=== PATIENT | female | born 1945 | race Caucasian/White ===

== ENCOUNTER → 2016-07-18 | Outpatient (CLI) | payer MEDICARE, OTHER | LOC: RAD 07:50 | PROVIDERS: ATTEND Family Medicine | DX: Z12.31 Encounter for screening mammogram for malignant neoplasm of breast (principal) ==

== ENCOUNTER → 2016-08-04 | Outpatient (CLI) | payer MEDICARE, OTHER ==
--- NOTE | 2016-08-04 13:52 | Diagnostic Imaging Report ---
EXAM: Left digital diagnostic mammography, with computer aided detection system (CAD). DATE: August 04, 2016. COMPARISON: July 18, 2016. June 11, 2015. March 31, 2014. March 30, 2013. INDICATION: Breast cancer screening. FINDINGS: There are scattered fibroglandular densities. There is resolution of the previously noted left breast asymmetries with spot compression views consistent with areas of normal fibroglandular tissues. There are no suspicious mammographic findings in the left breast. IMPRESSION: 1. No mammographic evidence of malignancy in the left breast. Recommend annual screening mammography and clinical breast exam. ACR BI-RADS Category 2: Benign findings. Result letter will be mailed to the patient. Note: At least 10% of breast cancer is not imaged by mammography. Dictated by: Dictated on workstation # [id number]
== END ==
LOC: RAD 12:42
PROVIDERS: ATTEND Family Medicine
DX: R92.2 Inconclusive mammogram (principal)